=== PATIENT | male | born 1965 | race Caucasian/White ===

== ENCOUNTER 2016-12-04 11:35 | Day surgery (SDC) | payer OTHER ==
--- NOTE | ~2016-12-04 | EGD ---
EGD REPORT [facility] [address] [address] NAME: OSMANI LE : 63 STATUS : REG [facility]#: [id number] AGE: 51 ADM/REG DATE : 12/04/16 MR#: [id number] REPORT SERV DATE: 12/04/16 DICTATED BY: ELLE PACKER DATE: 12/04/16 REPORT STATUS : Draft TRANSCRIBED BY: [facility] DATE: 12/04/16 Endoscopy Center Patient Name: Osmani Le Date of : 1965 Attending MD: ROSEANNE PACKER MD Procedure Date No Time: 12/04/2016 Procedure: Upper GI endoscopy Indications: Nausea Referring MD: Kendrick Koehler Medicines: See the Anesthesia note for documentation of the administered medications Complications: No immediate complications. Estimated blood loss: Minimal. Procedure: Pre-Anesthesia Assessment: - ASA Grade Assessment: III - A patient with severe systemic disease. - Prior to the procedure, a History and Physical was performed, and patient medications and allergies were reviewed. The patient's tolerance of previous anesthesia was also reviewed. The risks and benefits of the procedure and the sedation options and risks were discussed with the patient. All questions were answered, and informed consent was obtained. Prior Anticoagulants: The patient has taken aspirin and Plavix (clopidogrel), last doses were day of procedure. After reviewing the risks and benefits, the patient was deemed in satisfactory condition to undergo the procedure. After obtaining informed consent, the endoscope was passed under direct vision. Throughout the procedure, the patient's blood pressure, pulse, and oxygen saturations were monitored continuously. The GIF H190 [id number] was introduced through the mouth, and advanced to the second part of duodenum. The upper GI endoscopy was accomplished without difficulty. The patient tolerated the procedure well. Findings: Diffuse moderate inflammation characterized by congestion (edema) and erythema was found in the second part of the duodenum. Biopsies were taken with a cold forceps for histology. Diffuse mild inflammation characterized by congestion (edema) and erythema was found in the stomach. Biopsies were taken with a cold forceps for histology. The cardia and gastric fundus were normal on retroflexion. The examined esophagus was normal. EGD REPORT [address] [address] NAME: OSMANI LE : [birth year] STATUS : REG [facility] [place] PAT#: [id number] AGE: 51 ADM/REG DATE : 12/04/16 MR#: [id number] REPORT SERV DATE: 12/04/16 DICTATED BY: ELLE PACKER DATE: 12/04/16 REPORT STATUS : Draft TRANSCRIBED BY: [employer] DATE: 12/04/16 Impression: - Duodenitis. Biopsied. - Gastritis. Biopsied. - Normal esophagus. Recommendation: - Patient has a contact number available for emergencies. The signs and symptoms of potential delayed complications were discussed with the patient. Return to normal activities tomorrow. Written discharge instructions were provided to the patient. - Regular diet. - Discharge patient to home. - Continue present medications. - Await pathology results. - Needs to quit smoking. Patient had a cough all through the procedure and oxygen saturation kept dropping during the procedure Procedure Code(s): --- Professional --- 09045, Esophagogastroduodenoscopy, flexible, transoral; with biopsy, single or multiple Diagnosis Code(s): --- Professional --- K29.80, Duodenitis without bleeding K29.70, Gastritis, unspecified, without bleeding R11.0, Nausea CPT copyright 2013 [employer]. All rights reserved. The codes documented in this report are preliminary and upon euclid operator review may be revised to meet current compliance requirements. ROSEANNE PACKER MD 12/04/2016 2:24 PM This report has been signed electronically. Number of Addenda: 0 Note Initiated On: 12/04/2016 2:12 PM Scope Withdrawal Time 0 hours 0 minutes 0 seconds [address] [place] [address]
--- NOTE | ~2016-12-04 | EGD ---
EGD REPORT [facility] [address] [address] NAME: OSMANI LE : [birth year] STATUS : REG [facility]#: [id number] AGE: 51 ADM/REG DATE : 12/04/16 MR#: [id number] REPORT SERV DATE: 12/04/16 DICTATED BY: ELLE PACKER DATE: 12/04/16 REPORT STATUS : Draft TRANSCRIBED BY: [facility] DATE: 12/04/16 Endoscopy Center Patient Name: Osmani Le Date of : 1965 Attending MD: ROSEANNE PACKER MD Procedure Date No Time: 12/04/2016 Procedure: Colonoscopy Indications: Hematochezia Referring MD: Kendrick Koehler Medicines: See the Anesthesia note for documentation of the administered medications Complications: No immediate complications. Estimated blood loss: None. Procedure: Pre-Anesthesia Assessment: - ASA Grade Assessment: III - A patient with severe systemic disease. - Prior to the procedure, a History and Physical was performed, and patient medications and allergies were reviewed. The patient's tolerance of previous anesthesia was also reviewed. The risks and benefits of the procedure and the sedation options and risks were discussed with the patient. All questions were answered, and informed consent was obtained. Prior Anticoagulants: The patient has taken aspirin and Plavix (clopidogrel), last doses were day of procedure. After reviewing the risks and benefits, the patient was deemed in satisfactory condition to undergo the procedure. After I obtained informed consent, the scope was passed under direct vision. Throughout the procedure, the patient's blood pressure, pulse, and oxygen saturations were monitored continuously. The PCF [id number] was introduced through the anus and advanced to the terminal ileum. The ileocecal valve, appendiceal orifice, terminal ileum and rectum were photographed. The entire colon was examined. The colonoscopy was performed without difficulty. The patient tolerated the procedure well. The quality of the bowel preparation was adequate. Findings: The perianal exam was abnormal. Findings include non-thrombosed external hemorrhoids and internal hemorrhoids that do not return to the anal canal, thus continuously prolapsed (Grade IV). The terminal ileum appeared normal. A sessile polyp was found at the hepatic flexure. The polyp was 4 mm in size. The polyp was removed with a cold snare. Resection and retrieval were complete. EGD REPORT [address] [address] NAME: OSMANI LE : [birth year] STATUS : REG [facility]#: [id number] AGE: 51 ADM/REG DATE : 12/04/16 MR#: [id number] REPORT SERV DATE: 12/04/16 DICTATED BY: ELLE PACKER DATE: 12/04/16 REPORT STATUS : Draft TRANSCRIBED BY: [facility] DATE: 12/04/16 A sessile polyp was found at the hepatic flexure. The polyp was 2 mm in size. The polyp was removed with a cold biopsy forceps. Resection and retrieval were complete. A sessile polyp was found in the sigmoid colon. The polyp was 3 mm in size. The polyp was removed with a cold biopsy forceps. Resection and retrieval were complete. Non-bleeding internal hemorrhoids were found during retroflexion and were Grade II (internal hemorrhoids that prolapse but reduce spontaneously). No other significant abnormalities were identified in a careful examination of the remainder of the colon. Impression: - Non-thrombosed external hemorrhoids and internal hemorrhoids that do not return to the anal canal, thus continuously prolapsed (Grade IV) found on perianal exam. - The examined portion of the ileum was normal. - One 4 mm polyp at the hepatic flexure. Resected and retrieved. - One 2 mm polyp at the hepatic flexure. Resected and retrieved. - One 3 mm polyp in the sigmoid colon. Resected and retrieved. - Non-bleeding internal hemorrhoids. Recommendation: - Patient has a contact number available for emergencies. The signs and symptoms of potential delayed complications were discussed with the patient. Return to normal activities tomorrow. Written discharge instructions were provided to the patient. - Regular diet. - Discharge patient to home. - Continue present medications. - Await pathology results. - Repeat colonoscopy in 5 years for surveillance. Procedure Code(s): --- Professional --- 65096, Colonoscopy, flexible, proximal to splenic flexure; with removal of tumor(s), polyp(s), or other lesion(s) by snare technique 31490, 59, Colonoscopy, flexible, proximal to splenic flexure; with biopsy, single or multiple Diagnosis Code(s): --- Professional --- K64.1, Second degree hemorrhoids K64.3, Fourth degree hemorrhoids K64.4, Residual hemorrhoidal skin tags D12.5, Benign neoplasm of sigmoid colon EGD REPORT [address] [address] NAME: OSMANI LE : [birth year] STATUS : REG [facility] [place] PAT#: [id number] AGE: 51 ADM/REG DATE : 12/04/16 MR#: [id number] REPORT SERV DATE: 12/04/16 DICTATED BY: ELLE PACKER DATE: 12/04/16 REPORT STATUS : Draft TRANSCRIBED BY: [employer] DATE: 12/04/16 D12.3, Benign neoplasm of transverse colon K92.1, Melena CPT copyright 2013 [employer]. All rights reserved. The codes documented in this report are preliminary and upon evaluation assistant review may be revised to meet current compliance requirements. ROSEANNE PACKER MD 12/04/2016 2:45 PM This report has been signed electronically. Number of Addenda: 0 Note Initiated On: 12/04/2016 2:22 PM Scope Withdrawal Time 0 hours 10 minutes 45 seconds [address] [id number]
[~2016-12-04 11:35] MED LIST: ASAB PO; LOP25 PO; PLAVIX PO; PRAVAC PO
== END 2016-12-04 23:59 | disposition home or self-care (01) ==
LOC: DMU 11:35
PROVIDERS: Internal Medicine Gastroenterology
PROC: 0DB98ZX Excision of Duodenum, Via Natural or Artificial Opening Endoscopic, Diagnostic (ICD-10-PCS; 2016-12-04)
PROC: 0DBN8ZX Excision of Sigmoid Colon, Via Natural or Artificial Opening Endoscopic, Diagnostic (ICD-10-PCS; principal; 2016-12-04 13:00)
PROC: 0DBL8ZX Excision of Transverse Colon, Via Natural or Artificial Opening Endoscopic, Diagnostic (ICD-10-PCS; 2016-12-04 13:00)
PROC: 0DB68ZX Excision of Stomach, Via Natural or Artificial Opening Endoscopic, Diagnostic (ICD-10-PCS; 2016-12-04 13:00)
DX: D12.3 Benign neoplasm of transverse colon (principal); K63.5 Polyp of colon; K64.1 Second degree hemorrhoids; K64.3 Fourth degree hemorrhoids; K64.4 Residual hemorrhoidal skin tags; K29.80 Duodenitis without bleeding; K29.00 Acute gastritis without bleeding; I10 Essential (primary) hypertension; I25.10 Atherosclerotic heart disease of native coronary artery without angina pectoris; F41.9 Anxiety disorder, unspecified; F32.9 Major depressive disorder, single episode, unspecified; E78.00 Pure hypercholesterolemia, unspecified; G43.909 Migraine, unspecified, not intractable, without status migrainosus; Z95.5 Presence of coronary angioplasty implant and graft; Z91.013 Allergy to seafood; Z79.899 Other long term (current) drug therapy
CPT/HCPCS: 88305; 88342